=== PATIENT | male | born 1950 | race Caucasian/White ===

== ENCOUNTER 2023-08-07 08:16 | Outpatient (CLI) | payer OTHER, SELFPAY ==
[2023-08-07 09:01] LABS: Alanine Aminotransferase 12 U/L (0-41); Albumin Level 4.3 g/dL (3.5-5.2); Alkaline Phosphatase 52 U/L (40-130); Aspartate Amino Transferase 21 U/L (0-40); Globulin 2.1 g/dL (1.3-4.6); Total Bilirubin 0.5 mg/dL (0.15-1.2); Total Protein 6.4 g/dL (6.6-8.7)
== END 2023-08-07 08:17 | disposition home or self-care (01) ==
LOC: LAB 08:27
PROVIDERS: Visit Provider Chiropractor
DX: K76.89 Other specified diseases of liver (principal)
CPT/HCPCS: 36415; 80076

== ENCOUNTER 2023-11-09 13:38 | Outpatient (CLI) | payer OTHER, SELFPAY ==
[2023-11-09 13:49] VITALS: PULSE 88; RESP 18; O2SAT 95
[2023-11-09] MEDS: albuterol 2.5 mg/3 mL Neb INHALATION (13:49)
[2023-11-09 13:54] VITALS: PULSE 85
--- NOTE | 2023-11-09 14:22 | XR_ITS ---
WS: [id number] Exam: XR chest 2V* [id number] Date/Time of Exam: 11/09/2023 2:29 PM Reason For Exam: COPD/THYROID NODULES No priors. The lungs are fully expanded and clear. Heart size is normal. Tortuosity of the thoracic aorta. Bony structures are intact. Partially visualized vascular graft or IVC filter. IMPRESSION: 1. No acute cardiopulmonary finding.
[2023-11-09 15:46] LABS: Free T4 Free Thyroxine 1.16 ng/dL (0.82-1.77); T3 Free 3.1 PG/ML (2.0-4.4); Thyroid Stimulating Hormone 0.71 uIU/mL (0.27-4.20)
== END 2023-11-09 13:39 | disposition home or self-care (01) ==
LOC: RT 13:38
PROVIDERS: Visit Provider Chiropractor
DX: J44.9 Chronic obstructive pulmonary disease, unspecified (principal); E04.1 Nontoxic single thyroid nodule
CPT/HCPCS: 36415; 71046; 84439; 84443; 84481; 94060; J7613

== ENCOUNTER → 2023-12-25 09:06 | Outpatient (BNVA) | payer OTHER, SELFPAY | PROVIDERS: Visit Provider Anesthesiology Pain Medicine | DX: Z98.890 Other specified postprocedural states; Z86.79 Personal history of other diseases of the circulatory system; Z90.49 Acquired absence of other specified parts of digestive tract; M54.12 Radiculopathy, cervical region; M47.812 Spondylosis without myelopathy or radiculopathy, cervical region; M48.02 Spinal stenosis, cervical region | CPT/HCPCS: 99205 ==

== ENCOUNTER → 2023-12-28 13:55 | Outpatient (BNVA) | payer OTHER, SELFPAY | PROVIDERS: Visit Provider Anesthesiology Pain Medicine | DX: M47.812 Spondylosis without myelopathy or radiculopathy, cervical region (principal) | CPT/HCPCS: 64490; 64491; 64492; J1010; J3490 ==

== ENCOUNTER → 2024-01-11 12:31 | Outpatient (BNVA) | payer OTHER, SELFPAY | PROVIDERS: Visit Provider Anesthesiology Pain Medicine | DX: M47.812 Spondylosis without myelopathy or radiculopathy, cervical region (principal) | CPT/HCPCS: 64490; 64491; 64492 ==

== ENCOUNTER → 2024-01-29 08:11 | Outpatient (BNVA) | payer OTHER, SELFPAY | PROVIDERS: Visit Provider Anesthesiology Pain Medicine | DX: Z98.890 Other specified postprocedural states; Z86.79 Personal history of other diseases of the circulatory system; Z90.49 Acquired absence of other specified parts of digestive tract; M54.12 Radiculopathy, cervical region; M47.812 Spondylosis without myelopathy or radiculopathy, cervical region; M48.02 Spinal stenosis, cervical region | CPT/HCPCS: 99214 ==